=== PATIENT | female | born 1975 | race American Indian/Alaskan Native ===

== ENCOUNTER 2018-03-23 05:25 | Emergency (ER) | payer OTHER ==
[2018-03-23] MEDS ORDERED: TYLENOL PO ONE (05:46)
[2018-03-23] MEDS ORDERED: TYLENOL ONE (05:51)
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
[2018-03-23] MEDS ORDERED: NORCO 5/325 PO ONE (08:46)
[2018-03-23] MEDS ORDERED: FLEXERIL PO ONE (08:46)
[2018-03-23] MEDS ORDERED: DELTASONE PO NR (09:00)
[2018-03-23 09:43] VITALS: BP 132/91
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
== END 2018-03-23 09:43 | disposition home or self-care (01) ==
LOC: ED 05:25
DX: S16.1XXA Strain of muscle, fascia and tendon at neck level, initial encounter (principal); I10 Essential (primary) hypertension; V89.2XXA Person injured in unspecified motor-vehicle accident, traffic, initial encounter; Y93.89 Activity, other specified; Y92.488 Other paved roadways as the place of occurrence of the external cause; Y99.8 Other external cause status
CPT/HCPCS: 72040; 99283